=== PATIENT | male | born 1985 | race Caucasian/White ===

== ENCOUNTER 2022-09-24 07:53 | Outpatient (CLI) | payer MEDICAID, SELFPAY ==
[2022-09-24 13:51] LABS: Chloride* 107 mmol/L (96-114); Sodium* 141 mmol/L (135-149)
[2022-09-24 13:54] LABS: Cholesterol* 230 mg/dL (90-199)
[2022-09-24 13:54] LABS: Blood Urea Nitrogen* 13 mg/dL (5-24); Calcium* 9.4 mg/dL (8.4-10.6); Carbon Dioxide* 27 mmol/L (20-32); Creatinine* 0.8 mg/dL (0.5-1.5); Estimated Glomerular Filt Rate 115 ml/min; Glucose* 105 mg/dL (60-115)
[2022-09-24 13:55] LABS: HDL Cholesterol* 50 mg/dL (>=40); LDL Cholesterol Calculated 160 mg/dL (<100); Triglycerides* 102 mg/dL (40-149)
[2022-09-25 20:57] LABS: Testosterone, Adult Male 386 ng/dL (300-1080)
== END 2022-09-24 07:54 | disposition home or self-care (01) ==
LOC: LKVREF 07:54
PROVIDERS: Emergency Medicine; PCP Family Medicine; Visit Provider Family Medicine
DX: Z00.00 Encounter for general adult medical examination without abnormal findings (principal); R53.83 Other fatigue; E78.00 Pure hypercholesterolemia, unspecified; E78.5 Hyperlipidemia, unspecified; F41.9 Anxiety disorder, unspecified
CPT/HCPCS: 80048; 80061; 84403

== ENCOUNTER 2023-09-26 13:02 | Outpatient (CLI) | payer MEDICAID, SELFPAY ==
--- OUTSIDE RECORDS SUMMARY | 2023-09-26 13:06 | XMS_ITS | Encounter Summary ---
Author Name Unknown Organization [facility] Address [address], [place] [address] Care Team Providers Care Netezza Developer Name Role Phone Needs Pcp, Assignment Primary Care Provider Reason for Referral * Procedure/Equipment (Routine) - Incomplete Specialty Diagnoses / Procedures Referred By Cecile arroyo Referred To Contact Diagnoses Arthralgia of right ankle Procedures [place] Injection Talonavicular Joint Rt Jessica Dumont PA-C [address] [place] [id number] Referral ID Status Reason Start Date Expiration Date V isits Requested Visits Authorized [id number] Incomplete 08/24/2023 11/22/2024 1 1 ICULTURAL SPECIALTY GROWER FIELD Reason for Visit * Reason Comments ORDERS Encounter Details Date Type Department Care Team Description 08/23/2023 Telephone [facility] Medicine [address] [place] [address] Jessica Dumont PA-C [address] [place] [address] ORDERS Social History Tobacco Use Types Packs/Day Years Used Date Smoking Tobacco: Never Smokeless Tobacco: Never Sex and Gender Information Value Date Recorded Sex Assigned at Not on file Gender Identity Not on file Sexual Orientation Not on file documented as of this encounter Nursing Notes * Margaret Chapa RN - 08/24/2023 10:18 AM CST Patient is requesting a repeat injection of the right talonavicular joint. He had good relief from the past one on 11-19-22. Orders were entered and he will be called to schedule. ICULTURAL SPECIALTY GROWER FIELD * Haydee Reyes - 08/23/2023 2:49 PM CST ORDERS / REFERRAL What referral/order are you requesting: FL guided injection Why is the referral/order needed: R ankle pain Where would you like the order/referral sent to: Internal What is their fax number: If we are unable to reach you can we leave a detailed message on your voicemail? Yes If we are unable to reach you can we send you a message in SHEEX? No [Job Placement Officer/Field Map Technician: Relay to patient; We make every effort to get back to you sameday, however it may take 1-2 business days depending on the nature of the communication.] [Job Placement Officer/Field Map Technician: Please inform the patient that a referral/order does not guarantee insurance coverage. Patients should call the member services number on the back of their insurance ID card to understand what coverage for the services they are requesting.] ICULTURAL SPECIALTY GROWER FIELD documented in this encounter Plan of Treatment Not on file documented as of this encounter Results * FL Injection Talonavicular Joint Rt (09/06/2023 7:50 AM HORTICULTURAL SPECIALTY GROWER FIELD) Anatomical Region Laterality Modality Lower Extremity, Foot Radiograph ic Imaging 09/06/2023 7:13 AM HORTICULTURAL SPECIALTY GROWER FIELD Addenda Addendum by Ching Shaw PA-C on 09/06/2023 10:56 AM HORTICULTURAL SPECIALTY GROWER FIELD ADDENDUM: Contrast used was Isovue 200-M not Omnipaque 180. Impressions 09/06/2023 8:15 AM HORTICULTURAL SPECIALTY GROWER FIELD FINDINGS: The procedure, goals, risks and benefits of the procedure were discussed with the patient, who gave full written and verbal consent to proceed. The location of the procedure was confirmed, the skin initialed, and pause for cause performed. Using sterile technique, local anesthesia and fluoroscopic guidance a 25 gauge needle was advanced into the right talonavicular joint. Intraarticular location of the needle tip was confirmed with the injection of 1 mL of Omnipaque 180. Subsequently, 40 mg of triamcinolone (40 mg/mL), and 1 mL ropivacaine 0.5% was administered without complication. The patient rated their pain as a 6/10 prior to the injection, and 1/10 immediately following the injection. Narrative Procedure Note Ching Shaw PA-C - 09/06/2023 IMPRESSION FINDINGS: The procedure, goals, risks and benefits of the procedure werediscussed with the patient, who gave full written and verbal consent toproceed. The location of the procedure was confirmed, the skin initialed,and pause for cause performed. Using sterile technique, local anesthesiaand fluoroscopic guidance a 25 gauge needle was advanced into the righttalonavicular joint. Intraarticular location of the needle tip wasconfirmed with the injection of 1 mL of Omnipaque 180. Subsequently, 40 mgof triamcinolone (40 mg/mL), and 1 mL ropivacaine 0.5% was administeredwithout complication. The patient rated their pain as a 6/10 prior to the injection, and 1/10immediately following the injection. Jessica Dumont PA-C [facility] documented in this encounter Visit Diagnoses Diagnosis Arthralgia of right ankle- Primary Pain in joint, ankle and foot Arthralgia of right ankle Pain in joint, ankle and foot documented in this encounter Care Teams Netezza Developer Relationship Specialty Start Date End Date Needs Pcp, [place] [address] PCP - General 01/16/15 documented as of this encounter
--- OUTSIDE RECORDS SUMMARY | 2023-09-26 13:06 | XMS_ITS | Clinical Summary ---
Author Name Unknown Organization [facility] Address [address] [place] [address] Care Team Providers Care Manager Card Name Role Phone Needs Pcp, Assignment Primary Care Provider Source Comments You are receiving this document as you are listed as the primary care provider,follow-up provider, or the patient has been referred to you for consultation.This is in compliance with the Medicare and[facility] Incentive [facility],which states Providers who transition their patient to another setting of careor provider of care or refers their patient to another provider of care shouldprovide summary care record for each transition of care or referral. [facility] Allergies No known active allergies Medications No known medications Encounters Date Type Department Care Team Description 09/06/2023 7:30 AM BUTTER FAT TESTER Ancillary Procedure [facility] [address] [place] [address] Jessica Dumont PA-C Arthralgia of right ankle 08/23/2023 Telephone [facility] Medicine [address] [place] [address] Jessica Dumont PA-C ORDERS from Last 3 Months Social History Tobacco Use Types Packs/Day Years Used Date Smoking Tobacco: Never Smokeless Tobacco: Never Sex and Gender Information Value Date Recorded Sex Assigned at Not on file Gender Identity Not on file Sexual Orientation Not on file Last Filed Vital Signs Vital Sign Reading Time Taken Comments Blood Pressure 129/77 12/28/2015 12:37 PM CDT Pulse 85 12/28/2015 12:37 PM CDT Temperature 36.8 ??C (98.2 ??F) 12/28/2015 12:37 PM C DT Respiratory Rate 16 12/28/2015 12:37 PM CDT Oxygen Saturation 99% 07/06/2014 11:57 AM BUTTER FAT TESTER Inhaled Oxygen Concentration - - Weight 94.9 kg (209 lb 3.5 oz) 07/13/2022 9:20 A M BUTTER FAT TESTER Height 180.3 cm (5' 11) 07/13/2022 9:20 AM BUTTER FAT TESTER Body Mass Index 29.18 07/13/2022 9:20 AM BUTTER FAT TESTER Plan of Treatment Health Maintenance Due Date Last Done Comments Hep C Screening (Preventive Services) 1983 HepB (1) 1983 COVID-19 Vaccine (#1) 1983 HIV Screening (Preventive Services) 1999 Adult Preventive Visit 2001 Cholesterol 2018 DTaP/Tdap/Td (2 - Tdap) 08/11/2020 08/11/2010 Influenza (#1) 2023 Zoster/Shingles (1 of 2) 2033 HPV Vaccine Aged Out No longer eligi ble based on patient's age to complete this topic HepA Aged Out No longer eligi ble based on patient's age to complete this topic Hib Aged Out No longer eligi ble based on patient's age to complete this topic IPV (Polio) Aged Out No longer eligi ble based on patient's age to complete this topic MCV4 Aged Out No longer eligi ble based on patient's age to complete this topic Pneumococcal Aged Out No longer eligi ble based on patient's age to complete this topic Procedures Procedure Name Priority Date/Time Associated Diagnosis Comments FL INJECTION TALONAVICULAR JOINT RT Routine 09/06/2023 7:50 AM BUTTER FAT TESTER Arthralgia of right ankle from Last 3 Months Results * FL Injection Talonavicular Joint Rt (09/06/2023 7:50 AM BUTTER FAT TESTER) Anatomical Region Laterality Modality Lower Extremity, Foot Radiograph ic Imaging 09/06/2023 7:13 AM BUTTER FAT TESTER Addenda Addendum by Ching Shaw PA-C on 09/06/2023 10:56 AM BUTTER FAT TESTER ADDENDUM: Contrast used was Isovue 200-M not Omnipaque 180. Impressions 09/06/2023 8:15 AM BUTTER FAT TESTER FINDINGS: The procedure, goals, risks and benefits [...] injection, and 1/10immediately following the injection. Jessica KENNEDY FL from Last 3 Months Care Teams Manager Card Relationship Specialty Start Date End Date Needs Pcp, [place] [address] PCP - General 01/16/15
--- OUTSIDE RECORDS SUMMARY | 2023-09-26 13:06 | XMS_ITS | Encounter Summary ---
Author Name Unknown Organization [facility] Address [address], [place] [address] Care Team Providers Care Commercial Fisher Name Role Phone Needs Pcp, Assignment Primary Care Provider Reason for Visit * Procedure/Equipment (Routine) - Incomplete Specialty Diagnoses / Procedures Referred By Cecile arroyo Referred To Contact Diagnoses Arthralgia of right ankle Procedures [place] Injection Talonavicular Joint Rt Jessica Dumont PA-C [address] [place] [id number] Referral ID Status Reason Start Date Expiration Date V isits Requested Visits Authorized [id number] Incomplete 11/16/2022 02/15/2024 1 1 Encounter Details Date Type Department Care Team Description 11/19/2022 8:30 AM CDT Ancillary Procedure [facility] [address] [place] [address] Jessica Dumont PA-C [address] [address] Arthralgia of right ankle Social History Tobacco Use Types Packs/Day Years Used Date Smoking Tobacco: Never Smokeless Tobacco: Never Sex and Gender Information Value Date Recorded Sex Assigned at Not on file Gender Identity Not on file Sexual Orientation Not on file documented as of this encounter Plan of Treatment Not on file documented as of this encounter Procedures Procedure Name Priority Date/Time Associated Diagnosis Comments FL INJECTION TALONAVICULAR JOINT RT Routine 11/19/2022 9:01 AM CDT Arthralgia of right ankle documented in this encounter Results * FL Injection Talonavicular Joint Rt (11/19/2022 9:01 AM CDT) Anatomical Region Laterality Modality Lower Extremity, Foot Radiograph ic Imaging 11/19/2022 8:19 AM CDT Impressions 11/19/2022 10:34 AM CDT FINDINGS: The procedure, goals, risks and benefits [...] with the injection of 1 mL of Isovue. Subsequently, 40 mg of triamcinolone (40 mg/mL), and 1 mL ropivacaine 0.5% was administered without complication. The patient rated their pain as a 5/10 prior to the injection, and 0/10 immediately following the injection. Narrative Procedure Note Brittney Cadet PA-C - 11/19/2022 IMPRESSION FINDINGS: The procedure, goals, risks and [...] with the injection of 1 mL of Isovue. Subsequently, 40 mg oftriamcinolone (40 mg/mL), and 1 mL ropivacaine 0.5% was administeredwithout complication. The patient rated their pain as a 5/10 prior to the injection, and 0/10immediately following the injection. Jessica Dumont PA-C RAD [place] documented in this encounter Visit Diagnoses Diagnosis Arthralgia of right ankle Pain in joint, ankle and foot documented in this encounter Administered Medications Inactive Administered Medications - up to 3 most recent administrations Medication Order MAR Action Action Date Dose Rate Site iopamidol (ISOVUE-M 200) 41 % intrathecal injection 1 mL 1 mL, Intra-articular, ONCE, On Tue11/19/22 at 0845, For 1 dose Given 11/19/2022 8:24 AM CDT 1 mL triamcinolone acetonide (KENALOG-40) 40 MG/ML injection 40 mg 40 mg, Intra-articular, ONCE, On Tue11/19/22 at 0845, For 1 dose Given 11/19/2022 8:25 AM CDT 40 mg documented in this encounter Care Teams Commercial Fisher Relationship Specialty Start Date End Date Needs Pcp, [place] [address] PCP - General 01/16/15 documented as of this encounter
--- OUTSIDE RECORDS SUMMARY | 2023-09-26 13:06 | XMS_ITS | Encounter Summary ---
Author Name Unknown Organization [facility] Address [address] [address] Care Team Providers Care Barrel Rifler Button Name Role Phone Needs Pcp, Assignment Primary Care Provider Reason for Visit * Procedure/Equipment (Routine) - Incomplete Specialty Diagnoses / Procedures Referred By Cecile arroyo Referred To Contact Diagnoses Arthralgia of right ankle Procedures [place] Injection Talonavicular Joint Rt Jessica Dumont PA-C [address] [place] [address] Referral ID Status Reason Start Date Expiration Date V isits Requested Visits Authorized [id number] Incomplete 08/24/2023 11/22/2024 1 1 Encounter Details Date Type Department Care Team Description 09/06/2023 7:30 AM STORE CLERK CHECKER Ancillary Procedure [facility] [address] [place] [address] Jessica Dumont PA-C [address] [id number] Arthralgia of right ankle Social History Tobacco [...] TALONAVICULAR JOINT RT Routine 09/06/2023 7:50 AM STORE CLERK CHECKER Arthralgia of right ankle documented in this encounter Results * FL Injection Talonavicular Joint Rt (09/06/2023 7:50 AM STORE CLERK CHECKER) Anatomical Region Laterality Modality Lower Extremity, Foot Radiograph ic Imaging 09/06/2023 7:13 AM STORE CLERK CHECKER Addenda Addendum by Ching Shaw PA-C on 09/06/2023 10:56 AM STORE CLERK CHECKER ADDENDUM: Contrast used was Isovue 200-M not Omnipaque 180. Impressions 09/06/2023 8:15 AM STORE CLERK CHECKER FINDINGS: The procedure, goals, risks and benefits [...] the injection, and 1/10immediately following the injection. A Dumont PA-C RAD [place] documented in this encounter Visit Diagnoses Diagnosis Arthralgia of right ankle Pain in joint, ankle and foot documented in this encounter Administered Medications Inactive Administered Medications - up to 3 most recent administrations Medication Order MAR Action Action Date Dose Rate Site iopamidol (ISOVUE-M 200) 41 % intrathecal injection 1 mL 1 mL, Intra-articular, ONCE, On Tue09/06/23 at 0745, For 1 dose Given 09/06/2023 7:15 AM STORE CLERK CHECKER 1 mL triamcinolone acetonide (KENALOG-40) 40 MG/ML injection 40 mg 40 mg, Intracapsular, ONCE, On Tue09/06/23 at 0745, For 1 dose Given 09/06/2023 7:16 AM STORE CLERK CHECKER 40 mg documented in this encounter Care Teams Barrel Rifler Button Relationship Specialty Start Date End Date Needs Pcp, [place] [address] PCP - General 01/16/15 documented as of this encounter
--- OUTSIDE RECORDS SUMMARY | 2023-09-26 13:06 | XMS_ITS | Encounter Summary ---
Author Name Unknown Organization [facility] Address [address], [place] [address] Care Team Providers Care Saloonkeeper Name Role Phone Needs Pcp, Assignment Primary Care Provider Reason for Referral * Procedure/Equipment (Routine) - Incomplete Specialty Diagnoses / Procedures Referred By Cecile arroyo Referred To Contact Diagnoses Arthralgia of right ankle Procedures [place] Injection Talonavicular Joint Rt Jessica Dumont PA-C [address] [place] [address] Referral ID Status Reason Start Date Expiration Date V isits Requested Visits Authorized [id number] Incomplete 11/16/2022 02/15/2024 1 1 Reason for Visit * Reason Comments Orders Needed Right Ankle Injectio n Encounter Details Date Type Department Care Team Description 11/16/[address] [facility] [address] [place] [address] Jessica Dumont PA-C [address] [place] [id number] Orders Needed (Right Ankle Injection) Social History Tobacco Use Types Packs/Day Years Used Date Smoking Tobacco: Never Smokeless Tobacco: Never Sex and Gender Information Value Date Recorded Sex Assigned at Not on file Gender Identity Not on file Sexual Orientation Not on file documented as of this encounter Nursing Notes * Margaret Chapa RN - 11/16/2022 9:06 AM CDT Patient requesting repeat injection of the TN joint. Last injection was 07-21-22. Orders entered and he will be scheduled. * Yina Montiel - 11/16/2022 8:31 AM CDT Has the patient recently had surgery or an injury? No What referral/order is being requested: Right ankle [place] Guided injection Why is the referral/order needed: Right ankle pain Is it okay to leave detailed message on your voicemail? Yes - please let patient know when orders are entered so he can call for scheduling. [Manager Utilization/Appt Center: If this call is after 3 p.m., communicate to patient: If we are not able to get back to you by the end of the day and your symptoms worsen please contact the Careline] [Manager Utilization: Please inform patient that a referral does not guarantee insurance coverage. Patients should call the member services number on the back of their insurance ID card to understand what coverage for the services they are requesting.] documented in this encounter Plan of Treatment [...] 0/10immediately following the injection. Jessica Dumont PA-C [facility] documented in this encounter Visit Diagnoses Diagnosis Arthralgia of right ankle- Primary Pain in joint, ankle and foot Arthralgia of right ankle Pain in joint, ankle and foot documented in this encounter Care Teams Saloonkeeper Relationship Specialty Start Date End Date Needs Pcp, [place] [address] PCP - General 01/16/15 documented as of this encounter
== END 2023-09-26 13:03 | disposition home or self-care (01) ==
PROVIDERS: PCP Family Medicine; Visit Provider Family Medicine
DX: E78.00 Pure hypercholesterolemia, unspecified (principal); Z13.228 Encounter for screening for other metabolic disorders; Z13.29 Encounter for screening for other suspected endocrine disorder
CPT/HCPCS: 80053; 80061; 84443

== ENCOUNTER 2023-10-28 22:34 | Outpatient (REF) | payer MEDICAID, SELFPAY ==
[2023-10-29 00:01] LABS: Basophils Absolute Auto 0.08 K/uL (0.00-0.30); Basophils Percent Auto 0.9 % (0.0-3.0); Eosinophils Absolute Auto 0.17 K/uL (0.00-0.50); Hematocrit 43.7 % (37.0-53.0); Hemoglobin* 14.7 gm/dL (13.5-17.5); Immature Granulocytes Abs Auto 0.05 K/uL (0.00-0.30); Immature Granulocytes Pct Auto 0.6 %; Lymphocytes Absolute Auto 1.79 K/uL (0.90-2.90); Lymphocytes Percent Auto 20.6 % (20-44); Mean Corpuscular HGB Conc 34 gm/dL (32-36); Mean Corpuscular Hemoglobin 28 pg (26-34); Mean Corpuscular Volume 82 fL (80-100); Monocytes Percent Auto 6.7 % (0.0-11.0); Neutrophils Absolute Auto 6.03 K/uL (1.7-7.0); Neutrophils Percent Auto 69.2 % (42.0-72.0); Platelet Count* 320 K/uL (140-440); RDW Coefficient of Variation % 12.5 % (11.5-15.5); Red Blood Count 5.32 m/uL (4.30-5.90)
[2023-10-29 00:13] LABS: Slide Review Reflex No
[2023-10-29 01:59] LABS: Aspartate Amino Transferase* 24 U/L (12-35); Bilirubin Total* 0.5 mg/dL (0.1-1.5); Creatinine* 0.9 mg/dL (0.5-1.5); Estimated Glomerular Filt Rate 111 ml/min
[2023-10-29 02:00] LABS: Alanine Aminotransferase* 27 U/L (4-50)
== END 2023-10-28 22:35 | disposition home or self-care (01) ==
LOC: NPINS 22:34
PROVIDERS: PCP Family Medicine; Visit Provider Physician Assistant
DX: J30.1 Allergic rhinitis due to pollen (principal); T78.3XXD Angioneurotic edema, subsequent encounter
CPT/HCPCS: 82247; 82565; 82955; 83520; 84450; 84460; 85025; 86160; 86161

== ENCOUNTER 2023-11-01 16:09 | Outpatient (REF) | payer MEDICAID, SELFPAY ==
[2023-11-01 16:35] LABS: Basophils Absolute Auto 0.07 K/uL (0.00-0.30); Basophils Percent Auto 0.8 % (0.0-3.0); Eosinophils Absolute Auto 0.14 K/uL (0.00-0.50); Eosinophils Percent Auto 1.5 % (0.0-7.0); Hematocrit 42.9 % (37.0-53.0); Hemoglobin* 14.5 gm/dL (13.5-17.5); Immature Granulocytes Abs Auto 0.01 K/uL (0.00-0.30); Immature Granulocytes Pct Auto 0.1 %; Lymphocytes Absolute Auto 2.02 K/uL (0.90-2.90); Lymphocytes Percent Auto 22.1 % (20-44); Mean Corpuscular HGB Conc 34 gm/dL (32-36); Mean Corpuscular Hemoglobin 27 pg (26-34); Mean Corpuscular Volume 81 fL (80-100); Monocytes Percent Auto 5.4 % (0.0-11.0); Neutrophils Absolute Auto 6.39 K/uL (1.7-7.0); Neutrophils Percent Auto 70.1 % (42.0-72.0); Platelet Count* 382 K/uL (140-440); RDW Coefficient of Variation % 12.4 % (11.5-15.5); Red Blood Count 5.32 m/uL (4.30-5.90); White Blood Count* 9.12 K/uL (4.50-11.00)
[2023-11-01 16:36] LABS: Slide Review Reflex No
== END 2023-11-01 16:10 | disposition home or self-care (01) ==
LOC: NPINS 16:09
PROVIDERS: PCP Family Medicine; Visit Provider Physician Assistant
DX: T78.3XXD Angioneurotic edema, subsequent encounter (principal)
CPT/HCPCS: 81273; 82955; 85025

== ENCOUNTER 2024-01-10 11:41 | Outpatient (CLI) | payer MEDICAID, SELFPAY ==
--- OUTSIDE RECORDS SUMMARY | 2024-01-10 11:48 | XMS_ITS | Clinical Summary ---
[facility] [address] [address] Care Team Providers Care Hematology Nurse Name Role Phone Needs Pcp, Assignment Primary Care Provider Source Comments You are receiving this document as you are listed as the primary care provider,follow-up provider, or the patient has been referred to you for consultation.This is in compliance with the Medicare and[facility] E[facility] Incent[facility],which states Providers who transition their patient to another setting of careor provider of care or refers their patient to another provider of care shouldprovide summary care record for each transition of care or referral. [facility] Allergies No known active allergies Medications No known medications Social History Tobacco Use Types Packs/Day Years [...] CDT Oxygen Saturation 99% 07/06/2014 11:57 AM BRAND AMBASSADOR Inhaled Oxygen Concentration - - Weight 94.9 kg (209 lb 3.5 oz) 07/13/2022 9:20 A M BRAND AMBASSADOR Height 180.3 cm (5' 11) 07/13/2022 9:20 AM BRAND AMBASSADOR Body Mass Index 29.18 07/13/2022 9:20 AM BRAND AMBASSADOR Plan of Treatment Health Maintenance Due Date Last Done Comments Hep C Screening (Preventive Services) 1983 HIV Screening (Preventive Services) 1999 Adult Preventive Visit 2001 HepB (1) 2002 Cholesterol 2018 DTaP/Tdap/Td (2 - Tdap) 08/11/2020 08/11/2010 COVID-19 Vaccine (1 - 2022-2 4 season) 2023 Influenza (Season Ended) 2024 Zoster/Shingles (1 of 2) 2033 HPV Vaccine [...] on patient's age to complete this topic Care Teams Hematology Nurse Relationship Specialty Start Date [place] [address] PCP - General 01/16/15
== END 2024-01-10 11:42 | disposition home or self-care (01) ==
LOC: LKVREF 11:47
PROVIDERS: PCP Family Medicine; Visit Provider Otolaryngology
DX: R53.83 Other fatigue (principal); Z13.29 Encounter for screening for other suspected endocrine disorder
CPT/HCPCS: 84443